=== PATIENT | female | born 1960 | race Caucasian/White ===

== ENCOUNTER 2022-11-06 01:12 | Emergency (ER) | payer OTHER ==
[~2022-11-06] VITALS: Ht 172.7 cm; Wt 104.3 kg
[2022-11-06] MEDS ORDERED: ALBUTEROL/IPRATROPIUM 3 ML NEB NEB ONE (01:15)
[2022-11-06] MEDS ORDERED: METHYLPREDNISOLONE SOD SUCC 125 MG/2ML VIAL IV ONE (01:15)
[2022-11-06 01:46] VITALS: PULSE 90; RESP 18; O2SAT 94
[2022-11-06 01:46] LABS: BASOPHILS # (AUTO) 0.1 (0.0-0.1); BASOPHILS % 0.5 % (0.0-1.0); EOSINOPHILS # (AUTO) 0.1 (0.0-0.4); EOSINOPHILS % 0.5 % (0.0-6.0); HEMATOCRIT 48.4 % (34.2-44.1); HEMOGLOBIN 16.6 g/dL (12.0-16.0); LYMPHOCYTES # (AUTO) 1.8 (1.0-3.2); LYMPHOCYTES % 15.9 % (18.0-39.1); MEAN CORPUSCULAR HGB CONC 34.3 g/dL (31-35); MEAN CORPUSCULAR VOLUME 90.5 fL (81-99); MONOCYTES # (AUTO) 0.5 (0.2-0.8); MONOCYTES % 4.4 % (4.4-11.3); NEUTROPHILS # (AUTO) 8.8 (2.1-6.9); NEUTROPHILS % 78.3 % (38.7-80.0); PLATELET COUNT 247 x10e3/uL (140-360); RED BLOOD COUNT 5.35 x10e6/uL (3.6-5.1); RED CELL DISTRIBUTION WIDTH 13.3 % (11.7-14.4)
[2022-11-06 02:01] LABS: ALBUMIN 3.3 g/dL (3.5-5.0); ALBUMIN/GLOBULIN RATIO 0.9 (0.8-2.0); ANION GAP 16.8 mmol/L (8-16); CREATININE, SERUM 0.76 mg/dL (0.57-1.11); POTASSIUM 3.8 mmol/L (3.5-5.1)
[2022-11-06] MEDS ORDERED: AZITHROMYCIN250 MG PO (03:54)
[2022-11-06] MEDS ORDERED: MEDROL4 M2 PO (03:54)
== END 2022-11-06 08:10 | disposition home or self-care (01) ==
LOC: ER 01:15
DX: R06.02 Shortness of breath (principal); J44.1 Chronic obstructive pulmonary disease with (acute) exacerbation; R94.31 Abnormal electrocardiogram [ECG] [EKG]; F17.210 Nicotine dependence, cigarettes, uncomplicated
CPT/HCPCS: 36415; 71045; 80053; 83880; 84484; 85025; 93005; 94799; 99284; J2930

== ENCOUNTER 2024-04-25 23:52 | Inpatient (IN) | payer OTHER ==
[~2024-04-25] VITALS: Ht 172.7 cm; Wt 157.4 kg
[~2024-04-25 23:52] MED LIST: AZITHROMYCIN250 MG PO; MEDROL4 M2 PO
[2024-04-26] VITALS (12 sets, daily range): BP systolic 138–156; BP diastolic 66–96; PULSE 61–98; RESP 16–19; TEMP 97.4–98.4; O2SAT 93–97
[2024-04-26 00:17] LABS: BASOPHILS # (AUTO) 0.1 (0.0-0.1); BASOPHILS % 0.6 % (0.0-1.0); EOSINOPHILS # (AUTO) 0.1 (0.0-0.4); EOSINOPHILS % 0.7 % (0.0-6.0); HEMATOCRIT 52.1 % (34.2-44.1); HEMOGLOBIN 16.4 g/dL (12.0-16.0); LYMPHOCYTES # (AUTO) 2.1 (1.0-3.2); LYMPHOCYTES % 22.9 % (18.0-39.1); MEAN CORPUSCULAR HEMOGLOBIN 30.7 pg (28-32); MEAN CORPUSCULAR HGB CONC 31.5 g/dL (31-35); MEAN CORPUSCULAR VOLUME 97.4 fL (81-99); MONOCYTES # (AUTO) 0.6 (0.2-0.8); MONOCYTES % 6.6 % (4.4-11.3); NEUTROPHILS # (AUTO) 6.2 (2.1-6.9); NEUTROPHILS % 68.6 % (38.7-80.0); PLATELET COUNT 244 x10e3/uL (140-360); RED BLOOD COUNT 5.35 x10e6/uL (3.6-5.1); RED CELL DISTRIBUTION WIDTH 13.6 % (11.7-14.4); WHITE BLOOD COUNT 9.07 x10e3/uL (4.8-10.8)
[2024-04-26 00:41] LABS: ALANINE AMINOTRANSFERASE 16 IU/L (0-55); ALBUMIN 3.6 g/dL (3.5-5.0); ALBUMIN/GLOBULIN RATIO 0.9 (0.8-2.0); ALKALINE PHOSPHATASE 74 IU/L (40-150); BILIRUBIN,TOTAL 0.3 mg/dL (0.2-1.2); BLOOD UREA NITROGEN 11 mg/dL (7-26); BUN/CREATININE RATIO 14 (6-25); CALCIUM 9.8 mg/dL (8.4-10.2); CARBON DIOXIDE 29 mmol/L (22-29); CHLORIDE 101 mmol/L (98-107); CREATINE KINASE 48 IU/L (29-168); CREATININE, SERUM 0.79 mg/dL (0.57-1.11); EST GLOMERULAR FILTRATION RATE 85 ML/MIN (>=60); GLUCOSE 105 mg/dL (74-118); SODIUM 143 mmol/L (136-145); TOTAL PROTEIN 7.5 g/dL (6.5-8.1)
[2024-04-26 00:52] LABS: TROPONIN I < 0.001 ng/mL (0-0.300)
[2024-04-26 00:57] LABS: CORONAVIRUS COVID-19 AG NEGATIVE (NEGATIVE); INFLUENZA A AG NEGATIVE (NEGATIVE); INFLUENZA B AG NEGATIVE (NEGATIVE)
[2024-04-26] MEDS ORDERED: SERTRALINE HCL100 MG PO (02:02)
[2024-04-26] MEDS ORDERED: NEURONTIN300 MG PO (02:02)
[2024-04-26] MEDS ORDERED: METOPROLOL SUCC50 MG PO (02:04)
[2024-04-26] MEDS ORDERED: PRIMIDONE125 MG PO (02:05)
[2024-04-26] MEDS ORDERED: LORATADINE10 MG PO (02:14)
[2024-04-26] MEDS ORDERED: ELIQUIS5 MG PO (02:14)
[2024-04-26] MEDS ORDERED: BUSPIRONE HCL10 MG PO (02:14)
[2024-04-26] MEDS ORDERED: HYDROCHLOROTHIA25 MG PO (02:14)
[2024-04-26] MEDS ORDERED: FAMOTIDINE20 MG PO (02:15)
[2024-04-26] MEDS: SODIUM CHLORIDE 0.9% 1000ML 1,000 ML IV SCH (03:19)
[2024-04-26] MEDS ORDERED: Morphine 2mg Syringe 2 MG/ML SYR IV PRN (03:45)
[2024-04-26] MEDS: TRAMADOL HCL 50 MG TAB PO PRN (04:17)
[2024-04-26] MEDS: METHYLPREDNISOLONE SOD SUCC 40 MG/ML VIAL 1ML IV SCH ×2 (06:00→20:02)
[2024-04-26] MEDS ORDERED: ONDANSETRON HCL INJ 2MG/ML 2ML 2 MG/ML VIAL IV PRN (07:00)
[2024-04-26] MEDS: ALBUTEROL/IPRATROPIUM 3 ML NEB NEB PRN (07:38)
[2024-04-26] MEDS: METOPROLOL SUCCINATE 50 MG TAB XL PO SCH (09:47)
[2024-04-26] MEDS: FAMOTIDINE 20 MG TAB PO SCH (09:48)
[2024-04-26] MEDS: Doxycycline IV 100 MG in SODIUM CHLORIDE 0.9% 100 ML IV SCH (09:48)
[2024-04-26] MEDS: APIXABAN 5 MG TABLET PO SCH (09:48)
[2024-04-26] MEDS: BUSPIRONE HCL 10 MG TABLET PO SCH (09:48)
[2024-04-26 09:49] LABS: TROPONIN I 0.004 ng/mL (0-0.300)
[2024-04-26] MEDS: ACETAMINOPHEN/CODEINE 300MG - 30MG TAB PO PRN (12:16)
[2024-04-26 16:51] LABS: TROPONIN I 0.006 ng/mL (0-0.300)
[2024-04-26] MEDS: DOCUSATE SODIUM 100 MG CAP PO SCH (18:07)
[2024-04-26] MEDS: BUDESONIDE/FORMOTEROL 160/4.5MCG INHALER INH SCH (19:00)
[2024-04-26] MEDS: POLYETHYLENE GLYCOL 3350 17 GM PACK PO PRN (19:59)
[2024-04-26] MEDS: BUDESONIDE 0.5MG/2 ML NEB ONE (23:39)
[2024-04-27] VITALS (9 sets, daily range): BP systolic 100–148; BP diastolic 63–92; PULSE 58–85; RESP 18–20; TEMP 97.5–98.3; O2SAT 95–99
[2024-04-27 06:30] LABS: BASOPHILS % 0.2 % (0.0-1.0); HEMATOCRIT 44.9 % (34.2-44.1); HEMOGLOBIN 14.8 g/dL (12.0-16.0); LYMPHOCYTES # (AUTO) 1.6 (1.0-3.2); LYMPHOCYTES % 10.3 % (18.0-39.1); MEAN CORPUSCULAR HEMOGLOBIN 30.6 pg (28-32); MONOCYTES # (AUTO) 0.7 (0.2-0.8); MONOCYTES % 4.6 % (4.4-11.3); NEUTROPHILS # (AUTO) 12.8 (2.1-6.9); NEUTROPHILS % 84.3 % (38.7-80.0); PLATELET COUNT 260 x10e3/uL (140-360); RED BLOOD COUNT 4.83 x10e6/uL (3.6-5.1); RED CELL DISTRIBUTION WIDTH 13.2 % (11.7-14.4); WHITE BLOOD COUNT 15.12 x10e3/uL (4.8-10.8)
[2024-04-27 06:56] LABS: ALBUMIN 3.1 g/dL (3.5-5.0); ALBUMIN/GLOBULIN RATIO 0.9 (0.8-2.0); ANION GAP 12.2 mmol/L (8-16); BILIRUBIN,TOTAL 0.2 mg/dL (0.2-1.2); CALCIUM 8.9 mg/dL (8.4-10.2); CREATININE, SERUM 0.7 mg/dL (0.57-1.11); POTASSIUM 4.2 mmol/L (3.5-5.1); TOTAL PROTEIN 6.4 g/dL (6.5-8.1)
[2024-04-27] MEDS: SERTRALINE HCL 50 MG TAB PO SCH (08:36)
[2024-04-27] MEDS: DOCUSATE SODIUM 100 MG CAP PO SCH (20:15)
[2024-04-27] MEDS: POLYETHYLENE GLYCOL 3350 17 GM PACK PO SCH (20:16)
[2024-04-27] MEDS: MELATONIN 3 MG TAB PO PRN (22:21)
[2024-04-28] VITALS (10 sets, daily range): BP systolic 104–137; BP diastolic 53–85; PULSE 61–93; RESP 16–20; TEMP 97.3–98.6; O2SAT 94–100
[2024-04-28] MEDS: PREDNISONE 20 MG TAB PO SCH (09:03)
[2024-04-29] VITALS (9 sets, daily range): BP systolic 118–137; BP diastolic 69–73; PULSE 53–63; RESP 17–20; TEMP 97.7–98.1; O2SAT 94–98
[2024-04-29] MEDS: PRIMIDONE 50 MG TAB PO SCH (21:54)
[2024-04-30] VITALS (10 sets, daily range): BP systolic 112–146; BP diastolic 61–92; PULSE 59–67; RESP 18–20; TEMP 97.4–98.6; O2SAT 95–98
[2024-04-30] MEDS: ALBUTEROL/IPRATROPIUM 3 ML NEB NEB ONE (09:00)
[2024-05-01] VITALS (7 sets, daily range): BP systolic 114–134; BP diastolic 63–69; PULSE 61–77; RESP 17–20; TEMP 98.3–98.5; O2SAT 94–97
[2024-05-01] MEDS: PREDNISONE 10 MG TAB PO SCH (09:07)
[2024-05-01] MEDS ORDERED: COLACE100 M1 PO (15:15)
[2024-05-01] MEDS ORDERED: ULTRAM 50MG50 MG PO (15:15)
[2024-05-01] MEDS ORDERED: DOXYCYCLINE HY100 M3 PO (15:15)
[2024-05-01] MEDS ORDERED: MIRALAX17 GM PO (15:15)
[2024-05-01] MEDS ORDERED: PREDNISONE2.5 MG PO (15:15)
[2024-05-01] MEDS ORDERED: SYMBICORT 16010.2 GM INH (15:15)
[2024-05-01] MEDS: GABAPENTIN 300 MG CAP PO SCH (17:15)
[2024-05-01] MEDS ORDERED: PRIMIDONE125 MG PO (19:00)
[2024-05-01] MEDS ORDERED: LORATADINE10 MG PO (19:00)
[2024-05-01] MEDS ORDERED: FAMOTIDINE20 MG PO (19:00)
[2024-05-01] MEDS ORDERED: HYDROCHLOROTHIA25 MG PO (19:00)
[2024-05-01] MEDS ORDERED: SERTRALINE HCL100 MG PO (19:00)
[2024-05-01] MEDS ORDERED: NEURONTIN300 MG PO (19:00)
[2024-05-01] MEDS ORDERED: ELIQUIS5 MG PO (19:00)
[2024-05-01] MEDS ORDERED: METOPROLOL SUCC50 MG PO (19:00)
[2024-05-01] MEDS ORDERED: BUSPIRONE HCL10 MG PO (19:00)
[2024-05-02] MEDS ORDERED: LORATADINE 10 MG TAB PO SCH (09:00)
[2024-05-02] MEDS ORDERED: PRIMIDONE 50 MG PO SCH (09:00)
[2024-05-02] MEDS ORDERED: HYDROCHLOROTHIAZIDE 25 MG TAB PO SCH (09:00)
== END 2024-05-01 20:34 | disposition home health service (06) | DRG 191 ==
LOC: ER 23:55 → ERHOLD 04-26 01:00 → MED/SURG3 04-26 02:14
PROVIDERS: ADMIT Internal Medicine; ATTEND Internal Medicine
DX: J44.1 Chronic obstructive pulmonary disease with (acute) exacerbation (principal); Z68.43 Body mass index [BMI] 50.0-59.9, adult; E66.01 Morbid (severe) obesity due to excess calories; I10 Essential (primary) hypertension; I48.0 Paroxysmal atrial fibrillation; Z79.01 Long term (current) use of anticoagulants; I49.1 Atrial premature depolarization; I71.20 Thoracic aortic aneurysm, without rupture, unspecified; R53.81 Other malaise; F41.8 Other specified anxiety disorders; R62.7 Adult failure to thrive; G89.29 Other chronic pain; M54.9 Dorsalgia, unspecified; F44.4 Conversion disorder with motor symptom or deficit; Z74.01 Bed confinement status; K59.00 Constipation, unspecified; Z87.891 Personal history of nicotine dependence; Z11.52 Encounter for screening for COVID-19; Z79.899 Other long term (current) drug therapy; Z79.52 Long term (current) use of systemic steroids
CPT/HCPCS: 36415; 71045; 80053; 82550; 83690; 83880; 84484; 85025; 93005; 93306; 94640; 94664; 94799; 99252; 99284; J2919; J7030; J7050; J7512

== ENCOUNTER 2024-11-14 16:26 | Inpatient (IN) | payer MEDICAID ==
[~2024-11-14] VITALS: Ht 180.3 cm; Wt 169.2 kg
[2024-11-14] VITALS (7 sets, daily range): BP systolic 124–128; BP diastolic 71–76; PULSE 76–97; RESP 17–20; TEMP 97.8–98.3; O2SAT 93–98
[~2024-11-14 16:26] MED LIST changes: +BUSPIRONE HCL10 MG PO; +CIPRO500 MG PO; +COLACE100 M1 PO; +DOXYCYCLINE HY100 M3 PO; +ELIQUIS5 MG PO; +FAMOTIDINE20 MG PO; +HYDROCHLOROTHIA25 MG PO; +LORATADINE10 MG PO; +METOPROLOL SUCC50 MG PO; +MIRALAX17 GM PO; +NEURONTIN300 MG PO; +PREDNISONE2.5 MG PO; +PRIMIDONE125 MG PO; +SERTRALINE HCL100 MG PO; +SYMBICORT 16010.2 GM INH; +ULTRAM 50MG50 MG PO; +VENTOLIN HFA18 GM INH; +ZITHROMAX500 MG PO
[2024-11-14 17:01] LABS: BASOPHILS % 0.4 % (0.0-1.0); EOSINOPHILS % 1.1 % (0.0-6.0); LYMPHOCYTES % 17.2 % (18.0-39.1); MONOCYTES % 6.5 % (4.4-11.3); NEUTROPHILS % 74.3 % (38.7-80.0); RED CELL DISTRIBUTION WIDTH 14.6 % (11.7-14.4)
[2024-11-14 17:22] LABS: EST GLOMERULAR FILTRATION RATE 87.0 ML/MIN (>=60)
[2024-11-14] MEDS: METHYLPREDNISOLONE SOD SUCC 125 MG/2ML VIAL IV ONE (17:23)
[2024-11-14] MEDS: ONDANSETRON HCL INJ 2MG/ML 2ML 2 MG/ML VIAL IV STA (17:23)
[2024-11-14] MEDS: ALBUTEROL/IPRATROPIUM 3 ML NEB NEB ONE (17:28)
[2024-11-14] MEDS ORDERED: IOPAMIDOL 370 MG/ML 100 ML INFUS..BTL INJ ONE (19:00)
[2024-11-14] MEDS ORDERED: SODIUM CHLORIDE FLUSH 10 ML SYR INJ PRN (19:00)
[2024-11-14] MEDS ORDERED: ALBUTEROL 90 MCG/ACT INHALER INH PRN (22:15)
[2024-11-14] MEDS: GABAPENTIN 300 MG CAP PO ONE (22:51)
[2024-11-14] MEDS: BUSPIRONE HCL 10 MG TABLET PO ONE (22:51)
[2024-11-14] MEDS: TRAMADOL HCL 50 MG TAB PO PRN (22:52)
[2024-11-14] MEDS: ALBUTEROL/IPRATROPIUM 3 ML NEB NEB PRN (23:30)
[2024-11-15] VITALS (11 sets, daily range): BP systolic 115–154; BP diastolic 58–72; PULSE 59–93; RESP 18–23; TEMP 97.8–98.5; O2SAT 94–100
[2024-11-15] MEDS ORDERED: GUAIFENESIN/DEXTROMETHORPHAN LIQD 5 ML UDC PO PRN (00:30)
[2024-11-15] MEDS ORDERED: MELATONIN 3 MG TAB PO PRN (00:30)
[2024-11-15] MEDS ORDERED: HYDRALAZINE HCL 20 MG/ML VIAL IV PRN (00:30)
[2024-11-15] MEDS ORDERED: ONDANSETRON HCL INJ 2MG/ML 2ML 2 MG/ML VIAL IV PRN (00:30)
[2024-11-15] MEDS ORDERED: ACETAMINOPHEN 325 MG TAB PO PRN (00:30)
[2024-11-15] MEDS ORDERED: MAGNESIUM/ALUMINUM/SIMETHICONE 30 ML UDC PO PRN (00:30)
[2024-11-15] MEDS: METHYLPREDNISOLONE SOD SUCC 125 MG/2ML VIAL IV SCH (05:04)
[2024-11-15 05:13] LABS: BASOPHILS % 0.2 % (0.0-1.0); EOSINOPHILS % 0.0 % (0.0-6.0); LYMPHOCYTES % 7.8 % (18.0-39.1); MONOCYTES % 1.7 % (4.4-11.3); NEUTROPHILS % 89.8 % (38.7-80.0); RED CELL DISTRIBUTION WIDTH 14.4 % (11.7-14.4)
[2024-11-15 05:41] LABS: EST GLOMERULAR FILTRATION RATE 98.0 ML/MIN (>=60)
[2024-11-15] MEDS: BUDESONIDE/FORMOTEROL 160/4.5MCG INHALER INH SCH (06:44)
[2024-11-15] MEDS: IPRATROPIUM BROMIDE 0.02% 2.5 ML NEB NEB SCH (06:44)
[2024-11-15] MEDS: APIXABAN 5 MG TABLET PO SCH (08:43)
[2024-11-15] MEDS: GABAPENTIN 300 MG CAP PO SCH (08:43)
[2024-11-15] MEDS: DOCUSATE SODIUM 100 MG CAP PO SCH (08:43)
[2024-11-15] MEDS: FAMOTIDINE 20 MG TAB PO SCH (08:43)
[2024-11-15] MEDS: BUSPIRONE HCL 10 MG TABLET PO SCH (08:43)
[2024-11-15] MEDS: MULTIVITAMINS/MINERALS TAB PO SCH (08:43)
[2024-11-15] MEDS: LORATADINE 10 MG TAB PO SCH (08:43)
[2024-11-15] MEDS: SERTRALINE HCL 100 MG TAB PO SCH (08:44)
[2024-11-15] MEDS: METOPROLOL SUCCINATE 50 MG TAB XL PO SCH (08:44)
[2024-11-15] MEDS ORDERED: LABETALOL HCL 5 MG/ML 20ML VIAL IV PRN (15:30)
[2024-11-16] VITALS (10 sets, daily range): BP systolic 116–133; BP diastolic 53–79; PULSE 61–78; RESP 17–20; TEMP 97.2–98.6; O2SAT 95–100
[2024-11-16 05:36] LABS: BASOPHILS % 0.2 % (0.0-1.0); EOSINOPHILS % 0.0 % (0.0-6.0); LYMPHOCYTES % 7.0 % (18.0-39.1); MONOCYTES % 2.4 % (4.4-11.3); NEUTROPHILS % 89.5 % (38.7-80.0); RED CELL DISTRIBUTION WIDTH 14.1 % (11.7-14.4)
[2024-11-16 06:00] LABS: EST GLOMERULAR FILTRATION RATE 99.0 ML/MIN (>=60); PHOSPHORUS 3.0 MG/DL (2.3-4.7)
[2024-11-16] MEDS: TEMAZEPAM 15 MG CAP PO PRN (22:24)
[2024-11-17] VITALS (10 sets, daily range): BP systolic 95–118; BP diastolic 51–73; PULSE 61–75; RESP 18–20; TEMP 97.5–98.4; O2SAT 95–100
[2024-11-17] MEDS: METHYLPREDNISOLONE SOD SUCC 40 MG/ML VIAL 1ML IV SCH (10:11)
[2024-11-17] MEDS: POLYETHYLENE GLYCOL 3350 17 GM PACK PO PRN (10:15)
[2024-11-18] VITALS (8 sets, daily range): BP systolic 111–120; BP diastolic 59–74; PULSE 58–71; RESP 16–21; TEMP 97.5–98.4; O2SAT 95–100
[2024-11-18] MEDS: ALBUTEROL SULF 0.083% NEB SOLN 3 ML NEB NEB PRN (08:27)
[2024-11-18] MEDS: PREDNISONE 10 MG TAB PO SCH (09:48)
[2024-11-18] MEDS ORDERED: VENTOLIN HFA18 GM INH (13:02)
[2024-11-18] MEDS ORDERED: LORATADINE10 MG PO (13:02)
[2024-11-18] MEDS ORDERED: HYDROCHLOROTHIA25 MG PO (13:02)
[2024-11-18] MEDS ORDERED: SYMBICORT 16010.2 GM INH (13:02)
[2024-11-18] MEDS ORDERED: MIRALAX17 GM PO (13:02)
[2024-11-18] MEDS ORDERED: NEURONTIN300 MG PO (13:02)
[2024-11-18] MEDS ORDERED: ELIQUIS5 MG PO (13:02)
[2024-11-18] MEDS ORDERED: FAMOTIDINE20 MG PO (13:02)
[2024-11-18] MEDS ORDERED: METOPROLOL SUCC50 MG PO (13:02)
[2024-11-22] MEDS ORDERED: PRIMIDONE125 MG PO (12:16)
[2024-11-22] MEDS ORDERED: ALBUTEROL0.63 MG/3 NEB (12:16)
== END 2024-11-18 17:14 | disposition home or self-care (01) | DRG 190 ==
LOC: ER 18:00 → ERHOLD 18:48 → MED/SURG 20:59
PROVIDERS: ADMIT Internal Medicine; ATTEND Internal Medicine
DX: J44.1 Chronic obstructive pulmonary disease with (acute) exacerbation (principal); J96.21 Acute and chronic respiratory failure with hypoxia; E66.2 Morbid (severe) obesity with alveolar hypoventilation; Z68.43 Body mass index [BMI] 50.0-59.9, adult; I10 Essential (primary) hypertension; F41.8 Other specified anxiety disorders; G62.9 Polyneuropathy, unspecified; G25.2 Other specified forms of tremor; F12.90 Cannabis use, unspecified, uncomplicated; F14.91 Cocaine use, unspecified, in remission; G47.00 Insomnia, unspecified; M54.9 Dorsalgia, unspecified; G89.29 Other chronic pain; R53.81 Other malaise; J30.9 Allergic rhinitis, unspecified; L53.9 Erythematous condition, unspecified; K59.00 Constipation, unspecified; I48.0 Paroxysmal atrial fibrillation; Z79.01 Long term (current) use of anticoagulants; Z91.148 Patient's other noncompliance with medication regimen for other reason; Z91.199 Patient's noncompliance with other medical treatment and regimen due to unspecified reason; Z74.01 Bed confinement status; Z83.3 Family history of diabetes mellitus; Z80.7 Family history of other malignant neoplasms of lymphoid, hematopoietic and related tissues; Z83.6 Family history of other diseases of the respiratory system; Z87.891 Personal history of nicotine dependence; Z99.81 Dependence on supplemental oxygen
CPT/HCPCS: 36415; 71045; 71260; 80048; 80053; 82550; 83036; 83735; 83880; 84100; 84439; 84443; 84484; 85025; 93005; 93306; 94640; 94760; 94799; 99252; 99285; J2405; J2919; J7050; J7512; Q9967